=== PATIENT | female | born 1970 | race African-American/Black ===

== ENCOUNTER → 2018-02-21 | Outpatient (CLI) | payer BC ==
[2018-02-21 15:56] LABS: ADD MAN DIFF? NO
[2018-02-21 15:57] LABS: HEMATOCRIT 34.3 % (37.0-47.0); HEMOGLOBIN 11.1 g/dl (12.0-16.0); MEAN CORPUSCULAR HEMOGLOBIN 30.3 pg (29.0-33.0); MEAN CORPUSCULAR VOLUME 93.7 fl (82.0-101.0); RED BLOOD COUNT 3.66 10^6/ul (4.20-5.40)
[2018-02-21 15:57] LABS: WHITE BLOOD COUNT 15.9 10^3/ul (4.8-10.8)
[2018-02-21 15:58] LABS: BASOPHILS % 0.2 % (0.0-2.0); LYMPHOCYTES % 6.5 % (15.0-51.0); MEAN CORPUSCULAR HGB CONC 32.4 g/dl (32.0-37.0); MEAN PLATELET VOLUME 10.8 fl (7.4-10.4); MONOCYTE # 1.1 10^3/ul (0.3-0.9); MONOCYTES % 6.7 % (0.0-11.0); NEUTROPHIL # 13.7 10^3/ul (1.6-7.5); PLATELET COUNT 186 10^3/UL (140-415); RED CELL DISTRIBUTION WIDTH 14.5 % (11.5-14.5)
[2018-02-21 16:05] LABS: ADD UMIC YES; UR ASCORBIC ACID 40 mg/dL (NEGATIVE); UR BILIRUBIN (Dip) NEGATIVE (NEGATIVE); UR BLOOD (Dip) 2+ mg/dL (NEGATIVE); UR CLARITY CLEAR (CLEAR); UR COLOR YELLOW (YELLOW); UR GLUCOSE (Dip) NEGATIVE (NEGATIVE); UR KETONES (Dip) TRACE mg/dL (NEGATIVE); UR LEUKOCYTE ESTERASE (Dip) NEGATIVE Leu/ul (NEGATIVE); UR MUCUS FEW /HPF (NONE SEEN); UR NITRITE (Dip) NEGATIVE (NEGATIVE); UR RBC 3 /HPF (0-5); UR SPECIFIC GRAVITY (Dip) 1.021 (1.003-1.030); UR TOTAL PROTEIN (Dip) 1+ mg/dl (NEGATIVE); UR UROBILINOGEN (Dip) NEGATIVE (NEGATIVE); UR WBC 2 /HPF (0-5)
[2018-02-21 16:23] LABS: ALANINE AMINOTRANSFERASE 26 IU/L (13-69); ALBUMIN/GLOBULIN RATIO 1.17; ALKALINE PHOSPHATASE 51 IU/L (42-121); ANION GAP 12 (8-16); ASPARTATE AMINO TRANSFERASE 25 IU/L (15-46); BILIRUBIN,INDIRECT 1.8 mg/dl (0-1.1); BILIRUBIN,TOTAL 1.8 mg/dl (0.2-1.3); BLOOD UREA NITROGEN 11 mg/dl (7-20); CALCIUM 9.2 mg/dl (8.4-10.2); CARBON DIOXIDE 27 mmol/L (21-31); CHLORIDE 103 mmol/L (97-110); CREATINE KINASE 58 IU/L (23-200); CREATININE 0.66 mg/dl (0.44-1.00); GLUCOSE 132 mg/dl (70-220); POTASSIUM 4.2 mmol/L (3.5-5.1); SODIUM 138 mmol/L (135-144); TOTAL PROTEIN 7.4 g/dl (6.1-8.1)
[2018-02-21 16:35] LABS: CK INDEX 0.4; TROPONIN-I 0.011 ng/ml (0.000-0.120)
[2018-02-21 16:41] LABS: CK-MB < 0.22 ng/ml (0.0-2.4)
[2018-02-21 16:59] LABS: ERYTHROCYTE SEDIMENTATION RATE 25 mm/Hr (0-20)
[2018-02-22 17:16] LABS: IRON 24 ug/dl (35-150)
[2018-02-22 17:26] LABS: % IRON SATURATION 6 % SAT (22-52); TOTAL IRON BINDING CAPACITY 385 ug/dl (241-421)
[2018-02-22 18:15] LABS: FERRITIN 76.5 ng/ml (6.2-137.0)
== END | disposition home or self-care (01) ==
LOC: LAB 15:12
DX: R50.9 Fever, unspecified (principal); M79.1 Myalgia
CPT/HCPCS: 80053; 81001; 82550; 82553; 82728; 83540; 84484; 85025; 85651; 87040; 87086

== ENCOUNTER 2018-02-23 09:56 | Inpatient (IN) | payer BC ==
[2018-02-23] MEDS ORDERED: ONDANSETRON INJ 8 MG in DEXTROSE 5% 50 ML IV (10:24)
[2018-02-23] MEDS ORDERED: ONDANSETRON INJ 8 MG in SOD CHLORIDE 0.9% 50 ML IV (10:30)
[2018-02-23] MEDS ORDERED: ONDANSETRON 4 MG INJ (10:43)
[2018-02-23] MEDS: AZITHROMYCIN 250 MG TAB PO (10:57)
[2018-02-23] MEDS: SOD CHLORIDE 0.9% 1,000 ML IV ×3 (11:06→14:21)
[2018-02-23] MEDS: HYDROmorphONE 1 MG/ML SYG IV (11:06)
[2018-02-23] MEDS: CEFTRIAXONE 1 GM/50 ML (PMX) 50 ML IVPB ×2 (11:07→13:34)
[2018-02-23] MEDS: ONDANSETRON 4 MG INJ IV (11:07)
[2018-02-23 11:17] LABS: ADD MAN DIFF? NO
[2018-02-23 11:20] LABS: WHITE BLOOD COUNT 12.5 10^3/ul (4.8-10.8)
[2018-02-23 11:20] LABS: BASOPHILS % 0.1 % (0.0-2.0); EOSINOPHILS % 0.1 % (0.0-7.0); HEMATOCRIT 27.3 % (37.0-47.0); HEMOGLOBIN 9.1 g/dl (12.0-16.0); LYMPHOCYTES # 0.8 10^3/ul (0.8-2.9); LYMPHOCYTES % 6.5 % (15.0-51.0); MEAN CORPUSCULAR HEMOGLOBIN 31.5 pg (29.0-33.0); MEAN CORPUSCULAR HGB CONC 33.3 g/dl (32.0-37.0); MEAN CORPUSCULAR VOLUME 94.5 fl (82.0-101.0); MEAN PLATELET VOLUME 10.9 fl (7.4-10.4); MONOCYTE # 0.9 10^3/ul (0.3-0.9); MONOCYTES % 7.1 % (0.0-11.0); NEUTROPHIL # 10.6 10^3/ul (1.6-7.5); NEUTROPHILS % 85.2 % (39.0-77.0); PLATELET COUNT 170 10^3/UL (140-415); RED BLOOD COUNT 2.89 10^6/ul (4.20-5.40); RED CELL DISTRIBUTION WIDTH 13.9 % (11.5-14.5)
[2018-02-23 11:24] LABS: ADD UMIC YES; UR ASCORBIC ACID 40 mg/dL (NEGATIVE); UR BILIRUBIN (Dip) NEGATIVE (NEGATIVE); UR BLOOD (Dip) 2+ mg/dL (NEGATIVE); UR CLARITY CLEAR (CLEAR); UR COLOR YELLOW (YELLOW); UR GLUCOSE (Dip) NEGATIVE (NEGATIVE); UR KETONES (Dip) NEGATIVE (NEGATIVE); UR LEUKOCYTE ESTERASE (Dip) NEGATIVE Leu/ul (NEGATIVE); UR MUCUS FEW /HPF (NONE SEEN); UR NITRITE (Dip) NEGATIVE (NEGATIVE); UR RBC 7 /HPF (0-5); UR SPECIFIC GRAVITY (Dip) 1.025 (1.003-1.030); UR TOTAL PROTEIN (Dip) 2+ mg/dl (NEGATIVE); UR UROBILINOGEN (Dip) 2+ mg/dL (NEGATIVE); UR WBC 2 /HPF (0-5)
[2018-02-23 11:40] LABS: ALANINE AMINOTRANSFERASE 26 IU/L (13-69); ALBUMIN 3.3 g/dl (3.3-4.9); ALBUMIN/GLOBULIN RATIO 1.03; ALKALINE PHOSPHATASE 45 IU/L (42-121); ANION GAP 11 (8-16); ASPARTATE AMINO TRANSFERASE 35 IU/L (15-46); BILIRUBIN,INDIRECT 1.3 mg/dl (0-1.1); BILIRUBIN,TOTAL 1.3 mg/dl (0.2-1.3); BLOOD UREA NITROGEN 11 mg/dl (7-20); CALCIUM 8.5 mg/dl (8.4-10.2); CARBON DIOXIDE 25 mmol/L (21-31); CHLORIDE 107 mmol/L (97-110); CREATININE 0.58 mg/dl (0.44-1.00); GLUCOSE 119 mg/dl (70-220); POTASSIUM 3.6 mmol/L (3.5-5.1); PROTIME 14.4 Sec (11.9-14.9); PT RATIO 1.1; SODIUM 139 mmol/L (135-144); TOTAL PROTEIN 6.5 g/dl (6.1-8.1)
[2018-02-23 11:41] LABS: LACTIC ACID 2.1 mmol/L (0.5-2.0)
[2018-02-23 12:00] LABS: TROPONIN-I < 0.012 ng/ml (0.000-0.120)
[2018-02-23] MEDS ORDERED: ONDANSETRON 4 MG INJ IV (12:00)
[2018-02-23] MEDS ORDERED: ACETAMINOPHEN 325 MG TAB PO (12:00)
[2018-02-23 12:39] LABS: HIV 1&2 ANTIBODY NEGATIVE (NEGATIVE)
[2018-02-23 14:18] LABS: LACTIC ACID 1.2 mmol/L (0.5-2.0)
[2018-02-23] MEDS: HYDROCODONE/APAP (5/325) TAB PO (16:20)
[2018-02-23 16:51] LABS: LACTIC ACID 1.6 mmol/L (0.5-2.0)
[2018-02-23] MEDS: CEFTRIAXONE 2 GM/50 ML (PMX) 50 ML IVPB (21:18)
[2018-02-23 22:02] LABS: RAPID PLASMA REAGIN NONREACTIVE (NR)
[2018-02-24] MEDS: HYDROCODONE/APAP (5/325) TAB PO ×3 (00:07→15:14)
[2018-02-24] MEDS: SOD CHLORIDE 0.9% 1,000 ML IV (01:46)
[2018-02-24 06:09] LABS: ADD MAN DIFF? NO
[2018-02-24 06:22] LABS: WHITE BLOOD COUNT 9.4 10^3/ul (4.8-10.8)
[2018-02-24 06:22] LABS: BASOPHILS % 0.3 % (0.0-2.0); EOSINOPHILS # 0.1 10^3/ul (0.0-0.5); EOSINOPHILS % 0.5 % (0.0-7.0); HEMATOCRIT 25.2 % (37.0-47.0); HEMOGLOBIN 8.1 g/dl (12.0-16.0); LYMPHOCYTES # 1.5 10^3/ul (0.8-2.9); LYMPHOCYTES % 15.7 % (15.0-51.0); MEAN CORPUSCULAR HEMOGLOBIN 31.2 pg (29.0-33.0); MEAN CORPUSCULAR HGB CONC 32.1 g/dl (32.0-37.0); MEAN CORPUSCULAR VOLUME 96.9 fl (82.0-101.0); MEAN PLATELET VOLUME 10.9 fl (7.4-10.4); MONOCYTES % 10.8 % (0.0-11.0); NEUTROPHIL # 6.8 10^3/ul (1.6-7.5); NEUTROPHILS % 71.9 % (39.0-77.0); PLATELET COUNT 182 10^3/UL (140-415); RED CELL DISTRIBUTION WIDTH 13.9 % (11.5-14.5)
[2018-02-24 06:57] LABS: ANION GAP 7 (8-16); BLOOD UREA NITROGEN 6 mg/dl (7-20); CALCIUM 8.1 mg/dl (8.4-10.2); CARBON DIOXIDE 26 mmol/L (21-31); CHLORIDE 109 mmol/L (97-110); CREATININE 0.62 mg/dl (0.44-1.00); GLUCOSE 98 mg/dl (70-220); POTASSIUM 3.9 mmol/L (3.5-5.1); SODIUM 138 mmol/L (135-144)
[2018-02-24] MEDS ORDERED: CEFTRIAXONE 1 GM/50 ML (PMX) 50 ML IVPB (08:00)
[2018-02-24] MEDS: CEFTRIAXONE 2 GM/50 ML (PMX) 50 ML IVPB ×2 (08:58→20:57)
[2018-02-24 19:59] LABS: RAPID PLASMA REAGIN NONREACTIVE (NR)
[2018-02-25] MEDS: ACETAMINOPHEN 325 MG TAB PO ×2 (02:43→09:14)
[2018-02-25 05:37] LABS: ADD MAN DIFF? NO
[2018-02-25 05:44] LABS: BASOPHILS % 0.2 % (0.0-2.0); EOSINOPHILS # 0.1 10^3/ul (0.0-0.5); EOSINOPHILS % 0.8 % (0.0-7.0); HEMOGLOBIN 8.1 g/dl (12.0-16.0); LYMPHOCYTES # 1.8 10^3/ul (0.8-2.9); LYMPHOCYTES % 20.3 % (15.0-51.0); MEAN CORPUSCULAR HEMOGLOBIN 30.1 pg (29.0-33.0); MEAN CORPUSCULAR HGB CONC 31.2 g/dl (32.0-37.0); MEAN CORPUSCULAR VOLUME 96.7 fl (82.0-101.0); MEAN PLATELET VOLUME 10.2 fl (7.4-10.4); MONOCYTE # 0.8 10^3/ul (0.3-0.9); NEUTROPHIL # 6.1 10^3/ul (1.6-7.5); NEUTROPHILS % 69.4 % (39.0-77.0); PLATELET COUNT 228 10^3/UL (140-415); RED BLOOD COUNT 2.69 10^6/ul (4.20-5.40); RED CELL DISTRIBUTION WIDTH 13.7 % (11.5-14.5)
[2018-02-25 05:44] LABS: WHITE BLOOD COUNT 8.8 10^3/ul (4.8-10.8)
[2018-02-25 06:13] LABS: ANION GAP 9 (8-16); BLOOD UREA NITROGEN 4 mg/dl (7-20); CALCIUM 8.9 mg/dl (8.4-10.2); CARBON DIOXIDE 29 mmol/L (21-31); CHLORIDE 108 mmol/L (97-110); CREATININE 0.61 mg/dl (0.44-1.00); GLUCOSE 109 mg/dl (70-220); POTASSIUM 4.5 mmol/L (3.5-5.1); SODIUM 141 mmol/L (135-144)
[2018-02-25] MEDS: CEFTRIAXONE 2 GM/50 ML (PMX) 50 ML IVPB ×2 (09:07→21:03)
[2018-02-25 15:51] LABS: IRON 29 ug/dl (35-150)
[2018-02-25 16:01] LABS: % IRON SATURATION 11 % SAT (22-52); TOTAL IRON BINDING CAPACITY 265 ug/dl (241-421)
[2018-02-25] MEDS: HYDROCODONE/APAP (5/325) TAB PO (20:07)
[2018-02-26] MEDS: ACETAMINOPHEN 325 MG TAB PO (03:01)
[2018-02-26] MEDS ORDERED: RIFAXIMIN 200 MG TAB PO (08:00)
[2018-02-26] MEDS: CEFTRIAXONE 1 GM/NS 50 ML IVPB (13:32)
== END 2018-02-26 16:30 | disposition home or self-care (01) | DRG 871 ==
LOC: E/R 09:56 → MS2 11:35
DX: A54.86 Gonococcal sepsis (principal)
CPT/HCPCS: 36415; 71045; 80048; 80053; 81001; 81025; 82728; 83540; 83605; 84484; 85025; 85610; 85730; 86592; 86703; 87040; 87086; 87591; 93005; 96365; 96366; 96375; 97162; 99291-25